=== PATIENT | female | born 2005 | race African-American/Black ===

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

== ENCOUNTER 2023-06-18 11:52 | Emergency (ER) | payer SELFPAY ==
[~2023-06-18] VITALS: Ht 172.7 cm; Wt 79.4 kg
[~2023-06-18 11:52] MED LIST changes: +AUG875 PO; +IBUP-1969 PO; +METR-154 PO
[2023-06-18 12:00] VITALS: BP_SYST 117; PULSE 83; RESP 19; TEMP 98.6; O2SAT 99
[2023-06-18] MEDS ORDERED: DEXAMETHASONE SOD PHOSPHATE 10 MG/ML VIAL PO ONE (13:30)
[2023-06-18] MEDS ORDERED: IBUPROFEN 600 MG TABLET PO ONE (13:30)
[2023-06-18] MEDS ORDERED: LIDOCAINE VISCOUS 2%, 15 ML UDC MM ONE (13:30)
[2023-06-18] MEDS ORDERED: BENZ1LOZ73 PO (13:59)
[2023-06-18] MEDS ORDERED: IBUP-1969 PO (13:59)
[2023-06-18 14:34] LABS: STREPTOCOCCUS A SCREEN (RAPID) POSITIVE (NEGATIVE)
[2023-06-18 14:44] LABS: INFLUENZA TYPE A negative (NEGATIVE); INFLUENZA TYPE B NEGATIVE (NEGATIVE)
[2023-06-18] MEDS ORDERED: PENICILLIN G BENZATHINE 1.2 MMU/2 ML SYR IM ONE (14:45)
[2023-06-18 15:59] VITALS: BP_SYST 121; PULSE 89; RESP 16; TEMP 97.8; O2SAT 97
== END 2023-06-18 15:57 | disposition home or self-care (01) ==
LOC: SED 11:52
DX: J02.0 Streptococcal pharyngitis (principal); J45.909 Unspecified asthma, uncomplicated; R05.9 Cough, unspecified; R68.83 Chills (without fever); Z79.899 Other long term (current) drug therapy
CPT/HCPCS: 99283; 86403; 36415; 96372; 87804 ×2; J0561; J2001; J1100

== ENCOUNTER 2023-07-14 22:40 | Emergency (ER) | payer SELFPAY ==
[~2023-07-14] VITALS: Ht 172.7 cm; Wt 79.4 kg
[~2023-07-14 22:40] MED LIST changes: +BENZ1LOZ73 PO
[2023-07-14 22:57] VITALS: BP_SYST 113; PULSE 84; RESP 16; TEMP 97.8; O2SAT 99
[2023-07-15] MEDS ORDERED: KETOROLAC TROMETHAMINE 60 MG/2 ML VIAL IM ONE (01:30)
[2023-07-15] MEDS ORDERED: CEPH-548 PO (01:32)
[2023-07-15] MEDS ORDERED: IBUP-1971 PO (01:32)
[2023-07-15 02:05] VITALS: BP_SYST 120; PULSE 81; RESP 16; TEMP 97.8; O2SAT 99
== END 2023-07-15 02:02 | disposition home or self-care (01) ==
LOC: SED 22:40
DX: L02.31 Cutaneous abscess of buttock (principal); M54.50 Low back pain, unspecified; J45.909 Unspecified asthma, uncomplicated; Z79.899 Other long term (current) drug therapy
CPT/HCPCS: 99283; 96372; J1885